=== PATIENT | female | born 1990 | race Caucasian/White ===

== ENCOUNTER 2017-03-19 09:15 | Day surgery (SDC) | payer BC ==
[~2017-03-19 09:15] MED LIST: Buffered Lidocaine 0.9% SYRIN* 5 ML/SYR SYRINGE INTRADERM ONE; DiMENhydriNATE IV* 50 MG/ML VIAL IV PUSH PRN; Famotidine IV* 10 MG/ML 2 ML (20 mg) IV ONE; Naloxone* 0.4 MG/ML 1 ML VIAL IV PRN; PROCHLORPERAZINE INJ 5 MG/ML 2 ML VIAL IV PRN; Scopolamine 1.5 mg* PATCH TRANSDERM PRN; oxyCODONE/Acetamin 5/325 MG* TAB PO PRN
[2017-03-19] MEDS ORDERED: KETAMINE HCL* 50 MG/ML 10 ML VIAL ONE (09:38)
[2017-03-19] MEDS ORDERED: Midazolam* 1 MG/ML 2 ML VIAL (2 MG) ONE (09:38)
[2017-03-19] MEDS ORDERED: fentaNYL* 50 MCG/ML 2 ML VIAL (100 MCG VIAL) ONE ×2 (09:38→12:40)
[2017-03-19] MEDS ORDERED: Famotidine IV* 10 MG/ML 2 ML (20 mg) ONE (09:48)
[2017-03-19] MEDS ORDERED: Atracurium* 10 MG/ML 10 ML VIAL ONE (11:53)
[2017-03-19] MEDS ORDERED: Morphine INJ* 10 MG/ML 1 ML CARPUJECT ONE ×2 (12:00→12:40)
[2017-03-19] MEDS ORDERED: Neostigmine Methylsulfate* 2 MG/2 ML SYRINGE ONE (12:01)
[2017-03-19] MEDS ORDERED: Ondansetron INJ* 2 MG/ML VIAL ONE (12:01)
[2017-03-19] MEDS ORDERED: Glycopyrrolate IV* 0.2 MG/ML 1 ML VIAL ONE (12:01)
[2017-03-19] MEDS ORDERED: Dexamethasone IV* 4 MG/ML 1 ML (4 MG) ONE (12:01)
[2017-03-19] MEDS ORDERED: PROCHLORPERAZINE INJ 5 MG/ML 2 ML VIAL ONE (12:01)
[2017-03-19] MEDS ORDERED: Scopolamine 1.5 mg* PATCH ONE (12:01)
[2017-03-19] MEDS ORDERED: Propofol* 10 MG/ML 20 ML BTL IV PUSH ONE (12:01)
[2017-03-19] MEDS: fentaNYL* 50 MCG/ML 2 ML VIAL (100 MCG VIAL) IV PRN ×2 (12:41→12:57)
[2017-03-19] MEDS: Morphine INJ* 2 MG/ML 1 ML CARPUJECT IV PRN ×2 (12:41→12:56)
[2017-03-19] MEDS ORDERED: DiMENhydriNATE IV* 50 MG/ML VIAL ONE (13:29)
[2017-03-19 14:33] VITALS: BP 128/83
--- NOTE | 2017-03-20 04:14 | OP ---
DATE OF OPERATION: 03/19/17 - [facility] DATE OF : 88 SURGEON: Taran Tadeo MD MAXILLOFACIAL SURGEON: None. ANESTHESIA: General. PRE-OP DIAGNOSIS: Chronic tonsillitis. POST-OP DIAGNOSIS: Chronic tonsillitis. OPERATIVE PROCEDURE: Tonsillectomy. ESTIMATED BLOOD LOSS: Negligible. SPECIMENS: Right and left tonsils to Pathology. DESCRIPTION OF PROCEDURE: The patient was brought to the operating room and general anesthesia was induced and an oral endotracheal tube was placed. Time- out was then performed. A McIvor mouth gag was used to facilitate exposure to the oropharynx and suspended from the Villalobos stand. The right tonsil was grasped with a straight Allis forceps, retracted medially and dissected free of its fossa with a coblation device at a setting of 7 and 3 with no bleeding. The left tonsil was removed in an identical fashion, again utilizing the coblation device at a setting of 7 and 3 with no bleeding. The tonsils were cryptic and filled with tonsil stones bilaterally. Once the tonsils were removed, the superior and inferior pole regions were prophylactically cauterized with the bipolar function set at 5. The mouth gag was then let down for period of minute , it was opened again. There was no evidence of active bleeding. An orogastric tube was passed into the stomach and the stomach contents were evacuated. The patient was then returned to the care of the anesthesiologist, extubated and delivered to the PACU in stable condition. [id number] #: [id number] MTDD
[2017-03-22] MEDS ORDERED: Scopolamine PATCH Remove* 1 NOTE MISC PATCH OFF ONE (06:05)
== END 2017-03-19 14:34 | disposition home or self-care (01) ==
LOC: OR 09:15
PROVIDERS: ATTEND Otolaryngology
DX: J35.01 Chronic tonsillitis (principal); K21.9 Gastro-esophageal reflux disease without esophagitis
CPT/HCPCS: 81025; 88304; A9270-GY; J0780; J1100; J1240; J2250; J2270; J2405; J2704; J3010